=== PATIENT | female | born 2000 | race Two or more races ===

== ENCOUNTER 2019-06-04 19:29 | Inpatient (IN) | payer MEDICAID ==
[~2019-06-04] VITALS: Ht 160 cm; Wt 75.0 kg
[2019-06-04] MEDS ORDERED: PREN-96 PO (20:31)
[2019-06-04 21:29] LABS: Basophils # (auto) 0 uL; Basophils % (auto) 0.4 % (0.0-2.0); Eosinophils # (auto) 0 uL; Eosinophils % (auto) 0.5 % (0.0-7.0); Hematocrit 37.3 % (36.0-46.0); Hemoglobin 12.6 g/dL (12.2-16.2); Lymphocytes # (auto) 1.8 uL; Lymphocytes % (auto) 21.2 % (10.0-50.0); Mean Corpuscular Hemoglobin 27.9 pg (28.0-32.0); Mean Corpuscular Hgb Conc. 33.9 g/dL (32.0-36.0); Mean Corpuscular Volume 82.3 fL (80.0-100.0); Monocytes # (auto) 0.6 uL; Neutrophils # (auto) 6.2 uL; Neutrophils % (auto) 70.9 % (37.0-80.0); Platelet Count (auto) 172 10^3/uL (140-450); Red Blood Cells 4.53 10^6/uL (4.0-5.20); Red Cell Distribution Width 13.7 % (11.8-14.3); White Blood Cell 8.7 10^3/uL (4.4-10.8)
[2019-06-04 21:44] LABS: Urine Bacteria NONE SEEN /hpf (None Seen); Urine Blood 1+ /uL (Negative); Urine Specific Gravity 1.006 (1.001-1.035); Urine WBC 2 /hpf (0 - 5)
[2019-06-04 21:44] LABS: INR < 0.93 (0.9-1.15); Partial Thromboplastin Time 30.6 sec (23.64-32.05)
[2019-06-04 21:57] LABS: Albumin 2.9 g/dL (3.4-5.0); Calcium 8.9 mg/dL (8.5-10.1); Potassium 3.9 mmol/L (3.5-5.1)
[2019-06-04 21:59] LABS: Alcohol, Urine < 3.0 mg/dL (0-5); Amphetamine Screen, Urine NEGATIVE (NEGATIVE); Barbiturate Scree,Urine NEGATIVE (NEGATIVE); Benzodiazephine Screen, Urine NEGATIVE (NEGATIVE); Cannabinoid Screen, Urine NEGATIVE (NEGATIVE); Cocaine Screen, Urine NEGATIVE (NEGATIVE); Opiate Scree,Urine NEGATIVE (NEGATIVE); Phencyclidine Screen, Urine NEGATIVE (NEGATIVE)
[2019-06-04 22:02] LABS: BUN/Creatinine Ratio 16.7; Bilirubin, Total 0.4 mg/dL (0.2-1.0); Total Protein 7.4 g/dL (6.4-8.2)
[2019-06-04] MEDS ORDERED: LACTATED RINGER'S 1,000 ML IV SCH (22:34)
[2019-06-04] MEDS ORDERED: LACT. RINGERS/OXYTOCIN 20UNITS 1,000 ML IV SCH (22:34)
[2019-06-04] MEDS ORDERED: METHYLERGONOVINE MALEATE 0.2 MG/ML AMP IM PRN (22:45)
[2019-06-04] MEDS ORDERED: WITCH HAZEL-GLYCERIN PAD TOP PRN (22:45)
[2019-06-04] MEDS ORDERED: NALBUPHINE HCL 10 MG/1ml INJECTION IV PRN (22:45)
[2019-06-04] MEDS ORDERED: LIDOCAINE 2%HCL (LOCAL ANESTH.) INJ 20ML MDV IJ ONE (22:45)
[2019-06-04] MEDS ORDERED: DERMOPLAST 60ML BOTTLE TOP PRN (22:45)
[2019-06-04] MEDS ORDERED: PENICILLIN G POT 5MIL/D5 50ML 50 ML IV ONE (22:45)
[2019-06-04] MEDS ORDERED: CARBOPROST TROMETHAMINE 250 MCG/1ML VIAL IM PRN (22:45)
[2019-06-04] MEDS ORDERED: PROMETHAZINE HCL 25 MG/ML 1ML IV PRN (22:45)
[2019-06-04] MEDS ORDERED: PHISODERM TOP SOLN 240ML BTL TOP PRN (22:45)
--- NOTE | 2019-06-05 | NUR ---
Teaching: Reviewed information in [facility] booklet with patient. Discussed benefits of and risks associated with not . Discussed different positions, proper latch, feeding cues, and baby-led . Provided information of medication side effects related to . All questions and concerns addressed at this time. Patient verbalized understanding of information.
[2019-06-05] MEDS: IBUPROFEN 600 MG TAB PO PRN ×2 (00:36→16:24)
--- NOTE | 2019-06-05 01:45 | NUR ---
Ambulation: Patient OOB with standby assistance by RN. Patient ambulated to bathroom with steady gait. Patient able to void 300ml without difficulty. [facility]ic[facility] teaching provided with returned demonstration by patient. Clean gown provided and bed linen changed. Patient ambulated back to bed with steady gait and no distress noted.
[2019-06-05] MEDS ORDERED: PENICILLIN G POTASSIUM 2,500,000 UNITS in D5W 5% 50 ML IV SCH (02:45)
[2019-06-05 03:00] VITALS: BP 120/64
[2019-06-05 07:00] VITALS: BP 112/74
--- NOTE | 2019-06-05 07:00 | NUR ---
IV removal IV DC'd with clean technique, catheter fully intact. Pressure dressing applied to site. Patient tolerated procedure well. Discharged with aftercare instructions per MD. NOTE: Addendum: 06/05/19 at 0730 by Laurita Jones RN Amended: Links added.
[2019-06-05 11:00] VITALS: BP 118/69
--- NOTE | 2019-06-05 14:12 | NUR ---
Received consult to see pt. Mom is alert and oriented times 3. The nurses were concerned as they felt the pt had limited care. The pt and her mother, who was also present, speak only Argentine so an ceramic coater machine was present. The pt states she lived in [place] and for the first five months of her she was followed by a physician in [place]. The she moved to [place] for a month and saw a physician once prior to giving . The pt states she does not know the name of the physician who saw her. The pt also has a one and a half yr old little boy. The pt has extended family who will be involved in the care of the baby. According to the pt, she has supplies for the baby and does not need any assistance. Unfortunately, it is impossible to determine if pt did have care. Gave mother resources for supplies for the infant.
[2019-06-05 15:00] VITALS: BP 113/76
[2019-06-05] MEDS ORDERED: TETANUS-DIPTH-ACEL PERTUSSIS 0.5ML SYRG IM ONE (18:00)
[2019-06-05 19:00] VITALS: BP 122/86
[2019-06-05] MEDS ORDERED: INFLUENZA QUAD 2019-2020 0.5ml SYRG IM ONE (20:16)
[2019-06-05 23:00] VITALS: BP 116/81
[2019-06-06 03:16] VITALS: BP 114/61
[2019-06-06 04:06] LABS: RPR Non Reactive (Non Reactive); Rubella Antibodies, IgG 3.33 index (Immune >0.99)
[2019-06-06] MEDS ORDERED: INFLUENZA QUAD 2019-2020 0.5ml SYRG IM ONE (06:00)
[2019-06-06 07:30] VITALS: BP 104/67
--- NOTE | 2019-06-06 10:25 | NUR ---
Discharge: Discharge instructions given as ordered. Pt encouraged to follow up with [employer] as instructed. All questions and concerns addressed. Patient verbalized understanding. Medication reconciliation completed and copy given to patient. All required/requested vaccines given and copies of vaccinations given to patient. Patient encouraged to prepare to depart unit.
[2019-06-06 10:37] VITALS: BP 120/70
--- NOTE | 2019-06-06 10:37 | NUR ---
Discharge: Patient taken to vehicle via wheelchair with all personal belongings, accompanied by staff and family member. No distress noted at time of departure, no adverse changes in status since initial assessment.
--- NOTE | 2019-06-06 11:00 | NUR ---
D/C Planning Per SS consult for limited PNC, new to the [facility]. Pt was bonding with baby at bedside. Pt stated she was seeing a Doctor in [place] prior to coming to the [facility]. Pt stated she was taking her Pills and stated LILIANA Silverio schedule a follow up appointment for herself and her . Pt verbalize understanding d/c plan.
== END 2019-06-06 10:37 | disposition home or self-care (01) | DRG 560 ==
LOC: ER 19:29 → LDRP 19:43 → OBSVTOIN 19:45 → LDRP 19:45 → ER 19:45 → LDRP 06-05 19:22
PROVIDERS: ADMIT Obstetrics & Gynecology; ATTEND Obstetrics & Gynecology
PROC: 10E0XZZ Delivery of Products of Conception, External Approach (ICD-10-PCS; principal; 2019-06-05)
PROC: 0HQ9XZZ Repair Perineum Skin, External Approach (ICD-10-PCS; 2019-06-05)
PROC: 3E02340 Introduction of Influenza Vaccine into Muscle, Percutaneous Approach (ICD-10-PCS; 2019-06-05)
PROC: 3E0234Z Introduction of Serum, Toxoid and Vaccine into Muscle, Percutaneous Approach (ICD-10-PCS; 2019-06-05)
DX: O77.0 Labor and delivery complicated by meconium in amniotic fluid (principal); O70.0 First degree perineal laceration during delivery; Z37.0 Single live birth; Z3A.39 39 weeks gestation of pregnancy; Z23 Encounter for immunization
CPT/HCPCS: 36415; 59025; 59409; 76805; 76818; 80053; 80307; 81001; 81002; 84112; 85025; 85610; 85730; 86592; 86703; 86762; 86850; 86900; 86901; 87340; 90715; 96365; 96366; 96372; G0378; J2540; J2590; J7060

== ENCOUNTER 2024-10-08 01:25 | Inpatient (IN) | payer MEDICAID, OTHER ==
[~2024-10-08] VITALS: Ht 162.6 cm; Wt 78.0 kg
[~2024-10-08 01:25] MED LIST: PREN-96 PO
[2024-10-08] MEDS ORDERED: NALBUPHINE HCL 10 MG/1ml INJECTION IV PRN (02:45)
[2024-10-08 03:06] LABS: Urine Bacteria None Seen /hpf (None Seen)
[2024-10-08 03:15] LABS: Hematocrit 38.7 % (36.0-46.0); Hemoglobin 12.5 g/dL (12.2-16.2); Mean Corpuscular Hemoglobin 27.7 pg (28.0-32.0); Mean Corpuscular Hgb Conc. 32.3 g/dL (32.0-36.0); Mean Corpuscular Volume 85.7 fL (80.0-100.0); Platelet Count (auto) 194 10^3/uL (140-450); Red Blood Cells 4.51 10^6/uL (4.0-5.20); Red Cell Distribution Width 13.7 % (11.8-14.3); White Blood Cell 8.6 10^3/uL (4.4-10.8)
[2024-10-08 03:20] LABS: Basophils % (manual) 0 (0.0-2.0); Blast Cells 0; Eosinophils % (manual) 0 (0-7); Metamyelocytes % 0; Monocytes % (manual) 0 (0-12); Myelocytes % 0; Promyelocytes % 0; Reactive Lymphocytes 0
[2024-10-08] MEDS: PENICILLIN G POT 5MIL/D5 50ML 50 ML IV ONE (03:24)
[2024-10-08 03:28] LABS: Alanine Aminotransferase 13 U/L (7-40); Albumin 4.4 g/dL (3.2-4.8); Anion Gap 12 (5-15); BUN/Creatinine Ratio 15.7 (10.0-20.0); Calcium 9.6 mg/dL (8.7-10.4); Carbon Dioxide 22 mmol/L (20-31); Chloride 105 mmol/L (98-107); Glucose 91 mg/dL (74-106); Sodium 139 mmol/L (136-145)
[2024-10-08 03:28] LABS: Urine Blood 2+ /uL (Negative); Urine Clarity Turbid (Clear); Urine Color Yellow (Yellow); Urine Mucus FEW (None Seen); Urine Protein, UAD TRACE (Negative); Urine Specific Gravity 1.027 (1.001-1.035); Urine Squamous Epithelial Cell MOD /hpf (<5); Urine Urobilinogen Normal (Negative); Urine WBC 9 /HPF (0-5)
[2024-10-08 03:29] LABS: Bilirubin, Total 0.9 mg/dL (0.2-1.0); Total Protein 6.9 g/dL (5.7-8.2)
[2024-10-08 03:30] LABS: INR 0.99 (0.9-1.15); Partial Thromboplastin Time 29.7 SEC (24.5-34.5); Prothrombin Time 10.5 sec (9.3-11.8)
[2024-10-08 03:32] LABS: Alkaline Phosphatase 181 U/L (46-116); Aspartate Aminotransferase 12 U/L (13-40); Blood Urea Nitrogen 8 mg/dL (9-23); Potassium 3.5 mmol/L (3.5-5.1)
[2024-10-08 03:32] LABS: Amphetamine Screen, Urine Neg (NEGATIVE)
[2024-10-08 03:33] LABS: Barbiturate Scree,Urine Neg (NEGATIVE); Benzodiazephine Screen, Urine Neg (NEGATIVE); Cannabinoid Screen, Urine Neg (NEGATIVE); Cocaine Screen, Urine Neg (NEGATIVE); Opiate Scree,Urine Neg (NEGATIVE); Phencyclidine Screen, Urine Neg (NEGATIVE)
[2024-10-08] MEDS: LACT. RINGERS/OXYTOCIN 20UNITS 1,000 ML IV ONE (04:52)
[2024-10-08] MEDS: METHYLERGONOVINE MALEATE 0.2 MG/ML AMP IM ONE ×2 (04:53→07:00)
[2024-10-08] MEDS: PHISODERM TOP SOLN 240ML BTL TOP PRN (05:09)
[2024-10-08] MEDS: DERMOPLAST 60ML BOTTLE TOP PRN (05:10)
[2024-10-08] MEDS: LIDOCAINE 2%HCL (LOCAL ANESTH.) INJ 20ML MDV IJ PRN (05:14)
[2024-10-08] MEDS: LACTATED RINGER'S 1,000 ML IV SCH (05:28)
--- NOTE | 2024-10-08 05:55 | DVHHP2 ---
OB CC & HPI Date Date of Admission: Oct 08, 2024 Patient Identification: : 3 Para: 2 EDC: Oct 10, 2024 EGA: 39 2/ Chief Complaints: Reason for admission: active labor (PATIENT DELIVERED IN THE MILLER IN A WHEELCHAIR WHILE TRYING TO GET HER INTO A L AND D SUITE: DELIVERY FREDI FORD) Other reason for admission: ACTIVE LABOR Admission Nurse Assessment Rev: Yes History of Present Complaints PATIENT APPARENTLY FROM [place] DID HAVE SOME CARE THERE BUT NO RECORDS IMMEDIATELY AVAILABLE. BY VERBALIZATION FROM THE PATIENT AND SHE HAD NO SIGNIFICANT COMORBIDITIES THROUGH HER CARE. Past Medical History Cardiac: No pertinent Hx Pulmonary: No pertinent Hx Central Nervous System: No pertinent Hx GI: No pertinent Hx Hemotology/Oncology: No pertinent Hx Hepatobiliary: No pertinent Hx Psychiatric: No pertinent Hx Musculoskeletal: No pertinent Hx Rheumotologic: No pertinent Hx Infectious Disease: No peritnent Hx ENT: No pertinent Hx Renal/: No pertinent Hx Endocrine: No pertinent Hx Dermatology: No pertinent Hx Past Surgical History: No pertinent Hx OB History OB History Care: Limited Care (IN [facility]) Ultrasounds: No ultrasounds (NONE IMMEDIATELY AVAILABLE FOR [facility]) Obstetrical Complications: None Medical Complications: None (NONE PER PATIENT) Allergies: Coded Allergies: NO KNOWN ALLERGIES (Unverified , 06/04/19) Home Meds Reported Medications Vit W/ Ferrous Fumara ( One Daily) Daily Tab, 1 TAB PO DAILY, #90 TAB 3 Refills 06/04/19 Current Medications Current Medications Medications (Trade) Dose Ordered Sig/Demetrius Route PRN Reason Start Time Stop Time Status Last Admin Lactated Ringer's 1,000 ml @ 125 mls/hr Q8H IV 10/08/24 02:45 Nalbuphine HCl (Nubain) 10 mg Q4HP PRN IV MODERATE PAIN (4-6 PAIN SCALE) 10/08/24 02:45 Penicillin G Potassium [id number] units/Dextrose 50 ml @ 100 mls/hr Q4H IV 10/08/24 06:45 Witch Danica (Tucks) 1 pad PRN PRN TOP PERINEAL AREA DISCOMFORT 10/08/24 02:45 Sodium Lauryl Sulfate (Phisoderm) 240 ml PRN PRN TOP PERINEAL AREA DISCOMFORT 10/08/24 02:45 10/08/24 05:09 Benzocaine (Dermoplast) 1 applic PRN PRN TOP PERINEAL AREA DISCOMFORT 10/08/24 02:45 10/08/24 05:10 Lidocaine HCl (Xylocaine) 20 ml ONCE PRN IJ PERINEAL AREA DISCOMFORT 10/08/24 02:45 10/08/24 05:14 Family & Social History Family/Social History Past Family/Social History: NONCONTRIBUTORY Blood Type: Unknown Rubella: unknown RPR/VDRL: Unknown GBS Status: Unknown HBsAG: Unknown Review of Systems Constitutional: No symptom reported Ears, Nose, & Throat: No symptom reported Eyes: No symptom reported Pulmonary/Respiratory: No symptom reported Cardiovascular: No symptom reported Gastrointestinal: No symptom reported Genitourinary: No symptom reported Musculoskeletal: No symptom reported Skin: No symptom reported Psychiatric: No symptom reported Endocrine: No symptom reported Hemotologic/Lymphatic: No symptom reported OB Admission Exam Physical Exam Vitals: AFEBRILE VITAL SIGNS STABLE HEART TONES REASSURING AFTER DOA IN THE MILLER BY FREDI FORD HEENT: PERRLA Heart: Rhythm Normal Lungs: Clear Abdomen: Gravid Extremities: Normal Reflexes: Normal Pelvic Exam: COMPLETE RUPTURED DELIVERED IN WHOLE LABOR AND DELIVERY WITHIN A WHEELCHAIR Cervical Dilatation: 10cm Effacement: 0% Station: +3 Membranes: Ruptured Amniotic Fluid: Clear Intensity: Firm OB Plan Plan Admitting Diagnosis: Labor ACTIVE BE OA IN THE MILLER WITHIN LABOR AND DELIVERY BY FREDI FORD Plan: Expectant Management Other Plan: LAB SCREENING TYPE AND SCREEN SANTA BARROW DO Oct 08, 2024 05:55
--- NOTE | 2024-10-08 06:00 | LDN2 ---
Labor and Delivery Note Date 10/08/24 Age 23 3 Para 2 AB 0 EDC 10/10/2024 EGA 39 5/7 13 MINUTES Diagnosis BOA Vaginal Delivery: VTX Vacuum Assisted: No ([facility] DELIVERY SCHEDULED) Placenta: Spontaneous Sex: Male Weight PENDING Apgars 8/9 Nuchal Cord Transected: No Amniotic Fluid: Clear Anesthesia NONE THE ED Episiotomy: No Extension: Yes (FIRST-DEGREE POSTERIOR REPAIR) Repaired with 2 0 CHROMIC EBL 300 CC Labs Laboratory Tests 10/08/24 02:54: Hepatitis B Surface Antigen Negative, HIV (1&2) Antibody Negative Blood Bank 10/08/24 02:54: Blood Type A POSITIVE Complications BOA Conditions STABLE GUARDED Belt Builder NONE PRESENT SANTA BARROW DO Oct 08, 2024 06:00
[2024-10-08] MEDS ORDERED: IBUPROFEN 600 MG TAB PO PRN (06:15)
[2024-10-08] MEDS ORDERED: ACETAMINOPHEN 325 MG TAB PO PRN (06:15)
[2024-10-08 06:38] LABS: Band Neutrophils % (manual) 5; Lymphocytes % (manual) 29 (10.0-50.0); Platelet Estimate Adequate
[2024-10-08] MEDS: PENICILLIN G POTASSIUM 2,500,000 UNITS in D5W 5% 50 ML IV SCH (06:45)
[2024-10-08] MEDS: WITCH HAZEL-GLYCERIN PAD TOP PRN (06:48)
[2024-10-08] MEDS: LACT. RINGERS/OXYTOCIN 20UNITS 500 ML IV ONE ×2 (07:00→07:39)
[2024-10-08 07:02] VITALS: PULSE 75; RESP 18; O2SAT 99
[2024-10-08 11:30] VITALS: BP 106/65; PULSE 71; RESP 18; TEMP 98.2; O2SAT 96
[2024-10-08] MEDS ORDERED: IBUPROFEN 800 MG TAB PO SCH (12:00)
[2024-10-08 14:49] VITALS: BP 120/66; PULSE 76; RESP 18; TEMP 98; O2SAT 97
[2024-10-08 19:00] VITALS: BP 112/71; PULSE 77; RESP 17; TEMP 98.4; O2SAT 98
[2024-10-08] MEDS ORDERED: DOCUSATE SOD 100 MG CAP PO SCH (22:00)
[2024-10-08 23:00] VITALS: BP 108/65; PULSE 71; RESP 16; TEMP 98.2; O2SAT 99
[2024-10-09 03:00] VITALS: BP 119/72; PULSE 69; RESP 16; TEMP 98.3; O2SAT 99
--- NOTE | 2024-10-09 05:28 | DVHPN2 ---
Chief Complaints Patient reports: No new complaints Nursing reports: No new complaints, No abdominal pain, No chest pain, No dizziness, No cough Objective Vitals Vital Signs Date Time Temp Pulse Resp B/P (MAP) Pulse Ox O2 Delivery O2 Flow Rate FiO2 10/09/24 03:00 98.3 69 16 119/72 (88) 99 98.3 10/08/24 19:00 Room Air Medications Current Medications Medications (Trade) Dose Ordered Sig/Demetrius Route PRN Reason Start Time Stop Time Status Last Admin Acetaminophen (Tylenol Tablet) 650 mg Q4HP PRN PO MILD PAIN (1-3 PAIN SCALE) 10/08/24 06:15 Ibuprofen (Motrin Tablet) 600 mg Q6HP PRN PO MODERATE PAIN (4-6 PAIN SCALE) 10/08/24 06:15 General: Normal Neck: Normal Lungs: Normal Cardiovascular: Normal Abdominal: Normal Musculoskeletal: Normal Skin: Normal Neurological: Normal Studies Laboratory Tests 10/08/24 02:54 Test 10/08/24 02:54 Range/Units Serum Glucose 91 74-106 mg/dL Ass/Plan Assessment Hospital Day II induction ; post dates " nuchal cord ". Plan 2nd Cytotec Cx 1cm SANTA BARROW DO Oct 09, 2024 05:28
--- NOTE | 2024-10-09 06:06 | DVHPN2 ---
Chief Complaints Patient reports: No new complaints, Feels better, Other (minimal lochia, ambulating) Nursing reports: No new complaints, No abdominal pain, No chest pain, No dizziness, No cough Objective Vitals Vital Signs Date Time Temp Pulse Resp B/P (MAP) Pulse Ox O2 Delivery O2 Flow Rate FiO2 10/09/24 03:00 98.3 69 16 119/72 (88) 99 98.3 10/08/24 19:00 Room Air Medications Current Medications Medications (Trade) Dose Ordered Sig/Demetrius Route PRN Reason Start Time Stop Time Status Last Admin Acetaminophen (Tylenol Tablet) 650 mg Q4HP PRN PO MILD PAIN (1-3 PAIN SCALE) 10/08/24 06:15 Ibuprofen (Motrin Tablet) 600 mg Q6HP PRN PO MODERATE PAIN (4-6 PAIN SCALE) 10/08/24 06:15 General: Normal Head/Eyes: Normal Neck: Normal Lungs: Normal Cardiovascular: Normal Abdominal: Normal Musculoskeletal: Normal Extremities: Normal Skin: Normal Neurological: Normal Studies Laboratory Tests 10/08/24 02:54 Test 10/08/24 02:54 Range/Units Serum Glucose 91 74-106 mg/dL Ass/Plan Assessment PPD #1 stable improved Plan advance care see DC summary see DC orders SANTA BARROW DO Oct 09, 2024 06:06
--- NOTE | 2024-10-09 06:09 | DVHDS2 ---
Discharge Summary Date of Admission Oct 08, 2024 at 02:10 Date of Discharge: Oct 09, 2024 Admitting Diagnosis labor Wounds: none Labs/Diagnostic Data: Laboratory Results Test 10/08/24 02:54 10/08/24 02:00 White Blood Count 8.6 10^3/uL (4.4-10.8) Red Blood Count 4.51 10^6/uL (4.0-5.20) Hemoglobin 12.5 g/dL (12.2-16.2) Hematocrit 38.7 % (36.0-46.0) Mean Corpuscular Volume 85.7 fL (80.0-100.0) Mean Corpuscular Hemoglobin 27.7 pg (28.0-32.0) Mean Corpuscular Hemoglobin Concent 32.3 g/dL (32.0-36.0) Red Cell Distribution Width 13.7 % (11.8-14.3) Platelet Count 194 10^3/uL (140-450) Mean Platelet Volume 9.4 fL (6.9-10.8) Neutrophils (%) (Auto) % (37.0-80.0) Lymphocytes (%) (Auto) % (10.0-50.0) Monocytes (%) (Auto) % (0.0-12.0) Basophils (%) (Auto) % (0.0-2.0) Neutrophils # (Auto) 10 ^3/uL (1.6-8.6) Lymphocytes # (Auto) 10 ^3/uL (0.4-5.4) Monocytes # (Auto) 10 ^3/uL (0-1.3) Differential Total Cells Counted 100.0 (100) Neutrophils % (Manual) 66 (37.0-80.0) Band Neutrophils % (Manual) 5 Lymphocytes % (Manual) 29 (10.0-50.0) Monocytes % (Manual) 0 (0-12) Eosinophils % (Manual) 0 (0-7) Basophils % (Manual) 0 (0.0-2.0) Metamyelocytes % (manual) 0 Myelocytes % (Manual) 0 Promyelocytes % (Manual) 0 Blast Cells % (Manual) 0 Reactive Lymphocytes 0 Platelet Estimate Adequate Prothrombin Time 10.5 sec (9.3-11.8) Prothrombin Time INR 0.99 (0.9-1.15) Activated Partial Thromboplast Time 29.7 SEC (24.5-34.5) Sodium Level 139 mmol/L (136-145) Potassium Level 3.5 mmol/L (3.5-5.1) Chloride Level 105 mmol/L (98-107) Carbon Dioxide Level 22 mmol/L (20-31) Anion Gap 12 (5-15) Blood Urea Nitrogen 8 mg/dL (9-23) Creatinine 0.51 mg/dL (0.550-1.02) Glomerular Filtration Rate Calc 133 mL/min (>90) BUN/Creatinine Ratio 15.7 (10.0-20.0) Serum Glucose 91 mg/dL (74-106) Calcium Level 9.6 mg/dL (8.7-10.4) Total Bilirubin 0.9 mg/dL (0.2-1.0) Aspartate Amino Transferase (AST) 12 U/L (13-40) Alanine Aminotransferase (ALT) 13 U/L (7-40) Alkaline Phosphatase 181 U/L (46-116) Total Protein 6.9 g/dL (5.7-8.2) Albumin 4.4 g/dL (3.2-4.8) Hepatitis B Surface Antigen Negative (Negative) Hepatitis C Antibody Negative (Negative) HIV (1&2) Antibody Negative (Negative) Urine Color Yellow (Yellow) Urine Clarity Turbid (Clear) Urine pH 6.0 (5.0-9.0) Urine Specific Otis 1.027 (1.001-1.035) Urine Protein Trace (Negative) Urine Ketones 2+ (Negative) Urine Blood 2+ /uL (Negative) Urine Nitrite Negative (Negative) Urine Bilirubin Negative (Negative) Urine Urobilinogen Normal mg/dL (Negative) Urine Leukocyte Esterase 2+ /uL (Negative) Urine RBC 2 /hpf (0 - 4) Urine Microscopic WBC 9 /HPF (0-5) Urine Squamous Epithelial Cells Mod /hpf (<5) Urine Bacteria None seen /hpf (None Seen) Urine Mucus Few (None Seen) Urine Glucose Normal mg/dL (Normal) Urine Opiates Screen Neg (NEGATIVE) Urine Fentanyl Screen Neg (NEGATIVE) Urine Barbiturates Screen Neg (NEGATIVE) Urine Phencyclidine Screen Neg (NEGATIVE) Urine Amphetamines Screen Neg (NEGATIVE) Urine Benzodiazepines Screen Neg (NEGATIVE) Urine Cocaine Screen Neg (NEGATIVE) Urine Cannabinoids Screen Neg (NEGATIVE) Other Laboratory Tests 2/23/25 02:54 Brief Hx & Hospital Course: Consults/Reason for consult none Operations or Procedures none Condition at Discharge: Good Final Diagnosis/Problems List Discharge Disposition: Home SNF Discharge Will this Physician continue t: No Discharge Instruct/Medications Diet: Regular Activity: Light activity (pelvic rest 8 weeks) Follow Up/Referral: 2 weeks or prn primary [employer] Medications: resume home meds and diet Discharge Statement: "Patient was advised to return to the ER or call 911 if any headaches, dizziness, shortness of breath, chest pain, abdominal pain, bleeding, fevers, or worsening of medical condition. Patient was counseled about treatment plan, medications, possible side effects, patientverbalized understanding. All questions were answered to the best of my ability. This discharge took greater then 30 minutes in planning, reviewing documentation, counseling the patient, and discussing with other team members." ASSESSMENT ASSESSMENT Assessment Visit Coding OBGYN Date of Service: Oct 09, 2024 Billing Provider: SANTA BARROW DO [employer] Common Visit Codes: PROCEDURE ONLY [employer] Procedure Codes: 30726-JED DELIVERY ONLY SANTA BARROW DO Oct 09, 2024 06:09
[2024-10-09 06:51] VITALS: BP 115/68; PULSE 61; RESP 15; TEMP 98.3; O2SAT 98
[2024-10-09 11:11] VITALS: BP 119/70; PULSE 67; RESP 17; TEMP 98.3; O2SAT 98
[2024-10-09 19:00] VITALS: BP 112/67; PULSE 75; RESP 18; TEMP 98.2; O2SAT 96
[2024-10-09 23:15] VITALS: BP 119/74; PULSE 75; RESP 18; TEMP 98.4; O2SAT 96
[2024-10-10 03:15] VITALS: BP 110/58; PULSE 68; RESP 16; TEMP 98.2; O2SAT 95
[2024-10-10 07:00] VITALS: BP 102/72; PULSE 68; RESP 12; TEMP 97.7; O2SAT 99
[2024-10-10 08:07] LABS: RPR Non Reactive (Non Reactive)
[2024-10-10 11:07] LABS: Rubella Antibodies, IgG 1.86 index (Immune >0.99)
[2024-10-10] MEDS: TETANUS-DIPTH-ACEL PERTUSSIS 0.5ML SYR Tdap IM ONE (14:31)
[2024-10-10 23:07] LABS: Chlamydia Trachomatis, NAA Negative (Negative); Neisseria gonorrhoeae, NAA Negative (Negative)
== END 2024-10-10 15:02 | disposition home or self-care (01) | DRG 560 ==
LOC: LDRP 01:25 → OBSVTOIN 02:10 → LDRP 18:42
PROVIDERS: ADMIT Obstetrics & Gynecology; ATTEND Obstetrics & Gynecology
PROC: 10E0XZZ Delivery of Products of Conception, External Approach (ICD-10-PCS; principal; 2024-10-10)
PROC: 0HQ9XZZ Repair Perineum Skin, External Approach (ICD-10-PCS; 2024-10-10)
DX: O48.0 Post-term pregnancy (principal); Z37.0 Single live birth; O70.0 First degree perineal laceration during delivery; Z3A.39 39 weeks gestation of pregnancy
CPT/HCPCS: 36415; 59025; 59409; 80053; 80307; 81001; 81002; 85007; 85027; 85610; 85730; 86592; 86703; 86762; 86780; 86803; 86850; 86900; 86901; 87340; 90715; 94760; 96360; 96361; 96365; 96366; 96372; G0378; J2540; J2590; J7060